=== PATIENT | female | born 2000 | race Caucasian/White ===

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

== ENCOUNTER 2022-06-15 15:46 | Emergency (ER) | payer OTHER, SELFPAY ==
[2022-06-15 15:56] VITALS: BP 146/74; PULSE 88; RESP 14; TEMP 37.4; O2SAT 100
--- NOTE | 2022-06-15 16:22 | ED.URI ---
HPI - URI/Sore Throat General Chief Complaint: Upper Respiratory Infection Stated Complaint: strep test Source: patient and RN notes reviewed History of Present Illness HPI Narrative: 21-year-old female presents urgent care with complaints of a sore throat, cough, and headache x 2 days. Patient states that she thinks she had a low-grade fever the 1st day but that broke on its own. Patient denies any vomiting, ear pain, diarrhea, chest pain, shortness of breath. Patient is not taking anything for symptoms. Some parts of this dictation were generated by voice recognition software and may contain typographical and/or grammatical inaccuracies. Related Data Home Medications Medication Instructions Recorded Confirmed No Home Medications 04/11/21 07/08/21 Allergies Allergy/AdvReac Type Severity Reaction Status Date / Time lactose Allergy Unknown Nausea Verified 07/08/21 12:16 latex Allergy Unknown rash Verified 07/08/21 12:16 Review of Systems Review of Systems: CONSTITUTIONAL: Denies fever, chills, or sweats. EYES: Denies visual changes, redness, or discharge. ENT: sore throat CARDIOVASCULAR: Denies chest pain, palpitations, or edema. RESPIRATORY: Cough GASTROINTESTINAL: Denies abdominal pain, nausea, vomiting, or diarrhea. GENITOURINARY: Denies dysuria or hematuria. SKIN: Denies rash or itching. MUSCULOSKELETAL: Denies back pain, joint pain, or myalgia. NEUROLOGIC: Headache PMFSH Family History Family History Other Family history of cardiovascular disease Family history of headache disorder Comments At the time of my signature, I reviewed and agree with the nursing past medical, surgical, social, and family history. There is no relevant family history pertinent to the patient complaint. Exam Narrative: GENERAL: This is a well-nourished, well-developed patient, in no apparent distress. HEAD: normocephalic, atraumatic. EYES: PERRL. Sclera clear/white. Vision is grossly intact. EARS: External ears normal, auditory canals clear and without drainage, TMs normal without perforation. Hearing grossly intact. NOSE: External nose normal with no obvious nasal discharge, nares without redness, no rhinorrhea. THROAT: Mucous membranes moist, posterior pharynx erythemic. Bilateral tonsils 2+ with exudate noted. NECK: Neck supple, non-tender without lymphadenopathy, masses or thyromegaly. CARDIOVASCULAR: Regular rate and rhythm without murmurs, gallops, or rubs. RESPIRATORY: Clear to auscultation. Breath sounds equal bilaterally. No wheezes, rales, or rhonchi. SKIN: warm, intact with no suspicious lesions or rash, good texture and turgor. NEURO: awake, alert, and oriented to person, place and time. There were no obvious focal neurologic abnormalities. Course Course Level of Care: Express Care Visit Vital Signs Vital signs: Vital Signs Temperature 99.4 F 06/15/22 15:56 Pulse Rate 88 06/15/22 15:56 Respiratory Rate 14 06/15/22 15:56 Blood Pressure 146/74 H 06/15/22 15:56 Pulse Oximetry 100 06/15/22 15:56 Oxygen Delivery Room Air 06/15/22 15:56 Temperature 99.4 F 06/15/22 15:56 Pulse Rate 88 06/15/22 15:56 Respiratory Rate 14 06/15/22 15:56 Blood Pressure 146/74 H 06/15/22 15:56 Pulse Oximetry 100 06/15/22 15:56 Oxygen Delivery Room Air 06/15/22 15:56 Reviewed MDM - URI/Sore Throat MDM Narrative Medical decision making narrative: Rapid strep is negative in the office; however we will send to the lab for confirmation; there is a small percentage chance that it can come back positive; if it is, we will call you in 2-3days; and your prescription will be call in to your pharmacy. However, there is NO indication for antibiotic at this time. -Increase your fluids and Vitamin C. -Oral rinses such as: Salt water gargles and/or may use topical anesthetic (eg. Chloraseptic spray) or lozenges to relieve dryness or throat
== END 2022-06-15 16:27 | disposition home or self-care (01) ==
PROVIDERS: Emergency Provider Nurse Practitioner Family; PCP Nurse Practitioner Family
DX: J02.9 Acute pharyngitis, unspecified (principal)
CPT/HCPCS: 87081; 87880; 99213; G0463